=== PATIENT | female | born 1945 | race Caucasian/White ===

== ENCOUNTER → 2017-02-05 | Outpatient (CLI) | payer MEDICARE ==
--- NOTE | 2017-02-06 09:41 | MM ---
Reason for exam: screening (asymptomatic). Last mammogram was performed 2 years and 9 months ago. History: Patient is postmenopausal. Physical Findings: A clinical breast exam by your physician is recommended on an annual basis and results should be correlated with mammographic findings. MG 3D Screening Mammo W/Cad Bilateral CC and MLO view(s) were taken. Prior study comparison: April 23, 2014, bilateral MG screening mammo w CAD. June 27, 2012, bilateral digital screening mammo w/CAD. There are scattered fibroglandular densities. Finding: There are typically benign calcifications in the right breast. There is a chronic nodularity in the left breast. No significant changes in finding since April 23, 2014 and June 27, 2012. ASSESSMENT: Benign, BI-RAD 2 RECOMMENDATION: Routine screening mammogram of both breasts in 1 year.
== END ==
LOC: RADMAMWWP 11:28
PROVIDERS: ATTEND Family Medicine
DX: Z12.31 Encounter for screening mammogram for malignant neoplasm of breast (principal)
CPT/HCPCS: 77063; G0202

== ENCOUNTER → 2023-05-21 | Outpatient (CLI) | payer MEDICARE ==
[~2023-05-21] MED LIST: REGADENOSON 0.4 MG/5 ML SYRINGE IV PRN
--- NOTE | 2023-05-22 10:46 | CA ---
Lexiscan Nuclear Stress Test Report Name: Mara Tyson Exam Date: 05/21/2023 10:06 Exam Location: [place] Stress Ht (in): 61 Wt (lb): 203 BSA: 1.90 Ordering Phys: Heidy Carvalho DO Referring Phys: HEIDY CARVALHO,, Technologist: Leo Ruiz Age: 78 Gender: F : 1945 Procedure CPT: Indications: R07.89 other chest pain ICD-10 Codes: Patient History: Medications: Meds past 24 hrs: Pretest Chest Pain: STRESS TEST Lexiscan Protocol Exercise Duration (min:sec): 02:[address] Depressions (mm): Angina Score: Bailey Score: Resting HR (bpm): 59 Peak HR (bpm): 80 Resting BP (mmHg): 131 / 69 Peak BP (mmHg): 118 / 60 MPHR: 140 Target HR: 119 % MPHR: 57 METS: 1.0 Total Dose: Peak Dose: Atropine: Double Product: 9440 BP Response: Stress Termination: PROTOCOL COMPLETE Stress Symptoms: NO SYMPTOMS Stress Summary: ECG ANALYSIS Resting ECG: Stress ECG: CONCLUSIONS Baseline EKG revealed normal sinus rhythm without significant ST-T changes. Rare isolated PVCs were noted. With Lexiscan administration the heart rate changed from 59-77 bpm and the blood pressure changed from 131/69-112/55. Patient was asymptomatic. EKG was unremarkable. By EKG criteria this is a unremarkable Lexiscan stress test. The nuclear scan results which are more pertinent will be reported by the radiologist Dr. Romain Washington MD (Electronically Signed) Final Date: 22 May 2023 10:45
--- NOTE | 2023-05-23 16:49 | NM ---
EXAMINATION TYPE: NM stress lexiscan cardiolite DATE OF EXAM: 05/21/2023 COMPARISON: NONE CLINICAL INDICATION: Female, 78 years old with history of R07.89 OTHER CHEST PAIN; TECHNIQUE: After the intravenous administration of 9.9 mCi Tc 99m Sestamibi - Cardiolite resting SPE CT images acquired 45 minutes post injection. The patient received 0.4mg Lexiscan, 25.3 mCi Tc 99m Sestamibi - Stress images obtained [address] injection FINDINGS: Review of stress and rest SPECT images demonstrates a small reversible ischemia involving the cardiac apex. Gated analysis shows normal wall motion with an estimated left ventricular ejection fraction o f 69 %. IMPRESSION: SPECT images demonstrates a small reversible ischemia involving the cardiac apex.
== END | disposition home or self-care (01) ==
LOC: RADNMMAIN 08:12
PROVIDERS: ATTEND Family Medicine
DX: R07.89 Other chest pain (principal)
CPT/HCPCS: 93017; 78452; A9500; J2785

== ENCOUNTER 2023-07-11 09:19 | Day surgery (SDC) | payer MEDICARE ==
[~2023-07-11 09:19] MED LIST changes: +ALPRAZolam 0.25 MG TAB PO PRN; +ALPRAZolam 0.5 MG TAB PO PRN; +ASPIRIN 325 MG TAB PO STA; +ATORVASTATIN 80 MG TAB PO STA; +HEPARIN SODIUM,PORCINE (1 ML) 2,500 UNIT in SODIUM CHLORIDE 0.9% 250 ML IRRIGATION PRN; +HEPARIN SODIUM,PORCINE 10,000 UNIT in SODIUM CHLORIDE 0.9% 1,000 ML IRRIGATION PRN; +NITROGLYCERIN SL TABS 0.4 MG TAB SUBLINGUAL PRN; -REGADENOSON 0.4 MG/5 ML SYRINGE IV PRN
[2023-07-11] MEDS ORDERED: SODIUM CHLORIDE 0.9% 1,000 ML IV ONE ×2 (09:41→14:09)
[2023-07-11] MEDS ORDERED: HEPARIN SODIUM 1,000 UN/ML (10ML VL) ONE (12:51)
[2023-07-11] MEDS ORDERED: MIDAZOLAM 2 MG/2 ML VIAL IVP ONE (13:00)
[2023-07-11] MEDS ORDERED: LIDOCAINE 1% INJ 10MG/ML (5 ML VIAL-PF) SQ ONE (13:01)
[2023-07-11] MEDS: VERAPAMIL SYRINGE (5 MG/10 ML) INTRAARTER ONE ×2 (13:02→13:23)
[2023-07-11] MEDS: HEPARIN SODIUM 1,000 UN/ML (10ML VL) IV ONE ×3 (13:07→14:12)
[2023-07-11] MEDS ORDERED: fentaNYL (PF) 50 MCG/ML 2 ML AMP IVP ONE (13:20)
[2023-07-11] MEDS ORDERED: fentaNYL (PF) 50 MCG/ML 2 ML AMP ONE (13:20)
[2023-07-11] MEDS ORDERED: CLOPIDOGREL 75 MG TAB ONE (13:55)
[2023-07-11] MEDS ORDERED: CLOPIDOGREL 75 MG TAB PO ONE (13:57)
[2023-07-11] MEDS ORDERED: IOPAMIDOL-370 100ML BTL INJ ONE ×2 (13:58→14:09)
[2023-07-11] MEDS ORDERED: NITROGLYCERIN 1000MCG/10ML SYRINGE INTRACORON ONE (14:01)
[2023-07-11] MEDS ORDERED: ESCITALOPRAM 5 MG TAB PO PRN (14:15)
[2023-07-11] MEDS ORDERED: ATROPINE SULFATE 0.1 MG/ML 10ML SYRINGE IV PRN (14:16)
[2023-07-11] MEDS ORDERED: NITROGLYCERIN SL TABS 0.4 MG TAB SUBLINGUAL PRN (14:16)
[2023-07-11] MEDS ORDERED: RX INFO: IV CONTRAST WAS GIVEN 1 EACH MISC MISCELLANE PRN (14:16)
[2023-07-11] MEDS ORDERED: ZOLPIDEM 5 MG TAB PO PRN (14:16)
[2023-07-11] MEDS ORDERED: MAG HYDROX/AL HYDROX/SIMETH 30 ML CUP PO PRN (14:16)
--- NOTE | 2023-07-11 14:24 | P.PCN ---
Date of Procedure: 07/11/23 Operative Findings: CARDIAC CATHETERIZATION AND PERCUTANEOUS CORONARY INTERVENTION PERFORMING PHYSICIAN: Jose Hinton MD, [facility] PROCEDURE PERFORMED: 1. Selective right and left coronary angiogram 2. Left heart catheterization 3. Successful stenting of proximal LAD using 4.0 x 18 mm Xience GANGA with an excellent angiographic results 4. Adjunctive use of intravascular ultrasound 5. Right radial artery angiogram INDICATION: An 78-year-old female patient was experiencing symptoms of chest discomfort and underwent myocardial perfusion imaging stress test showed ischemia. In the light of that a heart catheterization was advised COMPLICATION: None APPROACH: Right radial artery LEVEL OF SEDATION: Moderate with the sedation time off 66 minutes PROCEDURE DESCRIPTION: After obtaining an informed consent the patient was brought to the cardiac laborer stores. The right radial artery was cannulated using micropuncture technique and the micropuncture wire passed easily then I placed a 6-Vincentian sheath. I gave the patient 2 mg of verapamil intra-arterial and 6000 use of heparin and intravenous. Selective right and left coronary angiogram performed using JR4 and JL 3.5 catheters. Left heart catheterization was performed using the JR4 c atheter which cross the aortic valve then I did pulled back across the valve. The procedure was completed with no complication. Subsequently I did intervene on the left anterior descending artery. SELECTIVE CORONARY ANGIOGRAM: The right coronary artery: Large caliber vessel and a dominant vessel. The proximal RCA has intermediate to severe lesion appeared to be in the range of 60-70%. The mid and distal RCA appeared to be angiographically normal. Left main: It is angiographically normal. Bifurcates into an LCx and LAD The left circumflex: Large caliber vessel non-dominant vessel. The LCx appeared to be angiographically normal. Gives rises into an OM1 which appears to be normal. The left anterior descending artery: Large caliber vessel. The proximal LAD has a lesion appeared to be in the range of 80-90%. Was identified on the MARIA cranial the most. The LAD proximally gives rises into the first and second diagonal branches and the lesion is is in between the first and second diagonal branches. The LAD in the mid and distal portion appears to be angiographically normal HEMODYNAMICS: LVEDP was 12 mmHg was no significant gradient across aortic valve PCI OF THE LAD: Anticoagulation was initiated using heparin with continuous ACT monitoring. We had heart time advancing the guiding catheter over 035 wire because the right subclavian was extremely tortuous. At that point I was able to advanced an 035 glide advantage wire and exchanged out into an Amplatz stiff wire. Over that I was able to advance JL 3.5 guiding catheter. The left main was engaged. Subsequently I wire the LAD using a run-through wire. Intravascular ultrasound was performed and showed a diameter of the LAD around 4 mm and the LAD was not calcified. Balloon angioplasty was performed using 3.5 mm balloon before I deployed 40 by 18 mm stent where the stent was positioned under fluoroscopy guidance and deployed under fluoroscopy guidance and postdilated using 4 mm noncompliant balloon. Final angiogram showed good angiographic results and the procedure was completed was no complication CONCLUSION: 1. Severe disease involving the proximal LAD. I did perform successful stenting of the proximal LAD 2. Intermediate to severe disease involving the RCA 3. Normal left-sided filling pressure 4. Extremely tortuous right subclavian artery POSTPROCEDURE MANAGEMENT: 1. Dual antiplatelet therapy using aspirin and Plavix for at least 6 month 2. Assess the hemodynamic significance of the RCA lesion 3. Follow-up with the patient
[2023-07-11] MEDS ORDERED: SODIUM CHLORIDE 0.9% 1,000 ML in EMPTY BAG 1 BAG IV SCH (14:30)
[2023-07-11] MEDS ORDERED: INSULN ASP PRT/INSULIN ASPART 100 UNIT/ML 10 ML VIAL SQ SCH (17:00)
[2023-07-11] MEDS: SODIUM CHLORIDE 0.9% 1,000 ML in EMPTY BAG 1 BAG IV SCH (19:56)
[2023-07-11 20:48] LABS: Glucose,Whole Blood 141 mg/dL (70-110)
[2023-07-11] MEDS ORDERED: ATORVASTATIN 80 MG TAB PO SCH (21:00)
[2023-07-12 02:59] LABS: Glucose,Whole Blood 75 mg/dL (70-110)
[2023-07-12 06:10] LABS: Glucose,Whole Blood 64 mg/dL (70-110)
[2023-07-12 06:32] LABS: Glucose,Whole Blood 84 mg/dL (70-110)
[2023-07-12] MEDS ORDERED: INSULN ASP PRT/INSULIN ASPART 100 UNIT/ML 10 ML VIAL SQ SCH (07:30)
[2023-07-12] MEDS ORDERED: PANTOPRAZOLE 40 MG TABLET PO SCH (07:30)
[2023-07-12 08:25] VITALS: PULSE 61; RESP 17
--- NOTE | 2023-07-12 08:47 | P.DS ---
Providers Attending physician: Jose Hinton Consults: 07/11/23 14:16 Consult Physician Routine Consulting Provider: [facility] Consult Reason/Comments: Post Interventional patient Do you want consulting provider notified?: Already Contacted Primary care physician: Heidy [facility] Course: The patient is an 78-year-old female patient who underwent yesterday a heart catheterization and was found to have severe disease involving the proximal LAD which was stented and intermediate to severe disease involving the RCA. The procedure was performed from right radial approach and was challenging because of tortuosity right subclavian. We get good angiographic results by the end The patient was seen this morning. She is asymptomatic and hemodynamically stable. The patient is going to be discharged home on dual antiplatelet therapy and statin and I'll follow-up with the patient next week in the office Plan - Discharge Summary Discharge Rx Participant: Yes New Discharge Prescriptions: No Action Insulin Aspart Prot/Insuln Asp [Novolog MIX 70-30 Flexpen] 16 units SQ AC- BRKFST Fish Oil(Unk) 1 tab PO DAILY Candesartan/Hydrochlorothiazid [Candesartan-Hctz 32-12.5 mg Tb] 1 tab PO DAILY Baclofen 10 mg PO DAILY Omeprazole [PriLOSEC] 20 mg PO AC-BRKFST Montelukast [Singulair] 10 mg PO DAILY Vit C(Unk) 1 tab PO DAILY Verapamil HCl [Verapamil ER] 120 mg PO DAILY Probiotic(Unk) 1 tab PO DAILY Ipratropium Mcfarland 0.06%Nasal [Atrovent Nasal 0.06%] 1 dose INHALATION DAILY Insulin Aspart Prot/Insuln Asp [Novolog MIX 70-30 Flexpen] 18 units SQ 1700 Escitalopram [Lexapro] 5 mg PO DAILY PRN PRN Reason: Anxiety D3()Unk) 1 tab PO DAILY Calsium/Magnesium(Unk) 1 tab PO DAILY Discharge Medication List Baclofen 10 mg PO DAILY 07/03/23 [History] Calsium/Magnesium(Unk) 1 tab PO DAILY 07/03/23 [History] Candesartan/Hydrochlorothiazid [Candesartan-Hctz 32-12.5 mg Tb] 1 tab PO DAILY 07/03/23 [History] D3()Unk) 1 tab PO DAILY 07/03/23 [History] Escitalopram [Lexapro] 5 mg PO DAILY PRN 07/03/23 [History] Fish Oil(Unk) 1 tab PO DAILY 07/03/23 [History] Insulin Aspart Prot/Insuln Asp [Novolog MIX 70-30 Flexpen] 16 units SQ AC-BRKFST 07/03/23 [History] Insulin Aspart Prot/Insuln Asp [Novolog MIX 70-30 Flexpen] 18 units SQ 1700 07/03/23 [History] Ipratropium Mcfarland 0.06%Nasal [Atrovent Nasal 0.06%] 1 dose INHALATION DAILY 07/03/23 [History] Montelukast [Singulair] 10 mg PO DAILY 07/03/23 [History] Omeprazole [PriLOSEC] 20 mg PO AC-BRKFST 07/03/23 [History] Probiotic(Unk) 1 tab PO DAILY 07/03/23 [History] Verapamil HCl [Verapamil ER] 120 mg PO DAILY 07/03/23 [History] Vit C(Unk) 1 tab PO DAILY 07/03/23 [History] Follow up Appointment(s)/Referral(s): Jose Hinton MD [STAFF PHYSICIAN] - 07/24/23 3:15 pm (Appointment is at Main Office) Patient Instructions/Handouts: Moderate Sedation (DC), Cardiac Rehabilitation (DC), Coronary Intravascular Stent Placement (DC), After Radial Heart Catheterization (GEN) Activity/Diet/Wound Care/Special Instructions: No driving for two days Ok to shower tomorrow but no baths, pools, lakes, doing dishes by hand for five days. Signs of infection IE: fever, rash, drainage from puncture site, swelling go to ER/doctor for immediate evaluation. Avoid using right wrist/hand to bend, flex, lift greater than 5 lbs for five days. For Heavy Bleeding of puncture site apply firm direct pressure and return to ER. Do not attempt to drive self. low sodium/low fat diet medications as directed by Cardiologists
[2023-07-12] MEDS ORDERED: hydroCHLOROthiazide 12.5 MG CAP PO SCH (09:00)
[2023-07-12] MEDS ORDERED: LACTOBACILLUS ACIDOPHILUS/PECT 1 EACH CAPSULE PO SCH (09:00)
[2023-07-12] MEDS ORDERED: CLOPIDOGREL 75 MG TAB PO SCH (09:00)
[2023-07-12] MEDS ORDERED: ASCORBIC ACID 500 MG TAB PO SCH (09:00)
[2023-07-12] MEDS ORDERED: FISH OIL PO SCH (09:00)
[2023-07-12] MEDS ORDERED: MONTELUKAST 10 MG TAB PO SCH (09:00)
[2023-07-12] MEDS ORDERED: BACLOFEN 10 MG TAB PO SCH (09:00)
[2023-07-12] MEDS ORDERED: CHOLECALCIFEROL 25 MCG (1000 IU) TABLET PO SCH (09:00)
[2023-07-12] MEDS ORDERED: VERAPAMIL SR 120 MG TABLET.ER PO SCH (09:00)
[2023-07-12] MEDS ORDERED: ASPIRIN 81 MG PO SCH (09:00)
[2023-07-12] MEDS ORDERED: [UNRECOGNIZED DRUG - MIXTURE] PO SCH (09:00)
[2023-07-12] MEDS ORDERED: LOSARTAN 50 MG TAB PO SCH (09:00)
[2023-07-12 09:17] LABS: African American GFR (CKD) 80 (>60 ml/min/1.73 sqM); Non-African American GFR(CKD) 69 (>60 ml/min/1.73 sqM)
[2023-07-12 12:04] VITALS: BP 106/58; TEMP 98.4
[2023-07-12 12:08] LABS: Glucose,Whole Blood 157 mg/dL (70-110)
== END 2023-07-12 12:02 | disposition home or self-care (01) ==
LOC: CATHCVL 09:19 → 3SCARD 14:06 → CATHCVL 07-12 12:02
PROVIDERS: ATTEND Internal Medicine Interventional Cardiology
DX: I25.10 Atherosclerotic heart disease of native coronary artery without angina pectoris (principal); I77.1 Stricture of artery; I11.9 Hypertensive heart disease without heart failure; E11.9 Type 2 diabetes mellitus without complications; E78.5 Hyperlipidemia, unspecified; E66.3 Overweight; Z79.899 Other long term (current) drug therapy; Z79.1 Long term (current) use of non-steroidal anti-inflammatories (NSAID); Z79.4 Long term (current) use of insulin; Z86.79 Personal history of other diseases of the circulatory system; Z68.38 Body mass index [BMI] 38.0-38.9, adult; Z88.5 Allergy status to narcotic agent
CPT/HCPCS: 92978; 93458; 82565; C1769 ×5; C9600; C1887; C1894; C1725 ×2; C1753; C1874; J2250; J2001; J3010; J1644; Q9967; J2305